=== PATIENT | male | born 2000 | race Caucasian/White ===

== ENCOUNTER 2022-10-29 21:10 | Emergency (ER) | payer OTHER ==
[~2022-10-29] VITALS: Ht 172.7 cm; Wt 76.2 kg
== END 2022-10-29 22:59 | disposition home or self-care (01) ==
LOC: EMR PED 21:10
DX: B34.9 Viral infection, unspecified (principal); Z88.8 Allergy status to other drugs, medicaments and biological substances

== ENCOUNTER 2023-07-22 23:02 | Emergency (ER) | payer OTHER ==
[~2023-07-22] VITALS: Ht 167.6 cm; Wt 81.6 kg
[2023-07-23] MEDS ORDERED: ORASEP SPRAY30 ML MM (03:06)
[2023-07-23] MEDS ORDERED: DOLOGESIC-DF 51 EACH PO (03:06)
== END 2023-07-23 03:11 ==
LOC: EMR PED 23:02
PROVIDERS: General Practice
DX: B34.9 Viral infection, unspecified (principal); Z20.822 Contact with and (suspected) exposure to COVID-19

== ENCOUNTER 2023-08-29 21:12 | Emergency (ER) | payer OTHER ==
[~2023-08-29] VITALS: Ht 167.6 cm; Wt 81.6 kg
[~2023-08-29 21:12] MED LIST: DOLOGESIC-DF 51 EACH PO; ORASEP SPRAY30 ML MM
[2023-08-29 23:16] LABS: HEMATOCRIT 45.6 % (39.0-48.0); HEMOGLOBIN 15.2 g/dL (13-16.00); MEAN CORPUSCULAR HEMOGLOBIN 27.3 pg (27.00-32.0); MEAN CORPUSCULAR HGB CONC 33.3 g/dl (32.0-36.0); PLATELET COUNT 249 K/uL (150-450); RED BLOOD COUNT 5.56 M/uL (4.00-6.00); RED CELL DISTRIBUTION WIDTH 14.1 % (11.5-14.5)
[2023-08-29 23:38] LABS: ALBUMIN 4.4 gm/dL (3.4-5.0); BILIRUBIN TOTAL 0.6 mg/dL (0.3-1.2); CALCIUM 9.3 mg/dL (8.5-10.1); CREATININE SERUM 0.96 mg/dL (0.70-1.30); GFR 99.86; GLOBULINA 4.5 G/DL (2.4-3.5); POTASSIUM 4.06 mEq/L (3.5-5.1); TOTAL PROTEIN 8.9 gm/dL (6.4-8.2)
[2023-08-30 01:45] LABS: PH,URINE 5.5 (5.0-8.0); URINE APPEARANCE Clear; URINE BILIRRUBIN Negative (NEGATIVE); URINE BLOOD Negative; URINE COLOR Yellow; URINE GLUCOSE Negative (NEGATIVE); URINE LEUKOCYTE Negative; URINE NITRATE Negative; URINE PROTEIN Negative (NEGATIVE); URINE UROBILINOGEN 0.2 E.U./dl
[2023-08-30 01:49] LABS: URINE BACTERIA 418.1 uL (0.0-1933); URINE EPITHELIAL CELLS 11.7 uL (0.0-38.8); URINE RBC 6.7 uL (0.0-20.8); URINE WBC 21.9 uL (0.0-23.2)
[2023-08-30] MEDS ORDERED: INTESTINEX680 M2 PO ×2 (03:02→03:03)
[2023-08-30] MEDS ORDERED: PEPCID40 MG PO (03:02)
[2023-08-30] MEDS ORDERED: ONDANSETRON ODT4 MG PO (03:02)
== END 2023-08-30 03:12 ==
LOC: ER 21:12 → EMR PED 21:12
PROVIDERS: Emergency Medicine Pediatric Emergency Medicine
DX: R11.10 Vomiting, unspecified (principal); E86.0 Dehydration; E16.1 Other hypoglycemia; R10.9 Unspecified abdominal pain
CPT/HCPCS: 36415; 96365; 96366; 99284; J2405; J3490; J7030; J7070

== ENCOUNTER 2023-11-01 22:18 | Emergency (ER) | payer OTHER ==
[~2023-11-01] VITALS: Ht 167.6 cm; Wt 79.4 kg
[~2023-11-01 22:18] MED LIST changes: +INTESTINEX680 M2 PO; +ONDANSETRON ODT4 MG PO; +PEPCID40 MG PO
[2023-11-02 00:52] LABS: HEMATOCRIT 42.2 % (39.0-48.0); HEMOGLOBIN 14.5 g/dL (13-16.00); MEAN CELL VOLUME 79.6 fL (80.0-100.00); MEAN CORPUSCULAR HEMOGLOBIN 27.3 pg (27.00-32.0); MEAN CORPUSCULAR HGB CONC 34.3 g/dl (32.0-36.0); PLATELET COUNT 198 K/uL (150-450); RED CELL DISTRIBUTION WIDTH 13.5 % (11.5-14.5)
[2023-11-02] MEDS ORDERED: DOLOGESIC-DF 51 EACH PO (02:12)
== END 2023-11-02 02:16 ==
LOC: EMR PED 22:19 → ER 22:19 → EMR PED 22:42
PROVIDERS: Emergency Medicine Pediatric Emergency Medicine
DX: J10.1 Influenza due to other identified influenza virus with other respiratory manifestations (principal); R53.81 Other malaise; R51.9 Headache, unspecified; Z20.822 Contact with and (suspected) exposure to COVID-19

== ENCOUNTER 2024-02-11 19:20 | Emergency (ER) | payer OTHER ==
[~2024-02-11] VITALS: Ht 152.4 cm; Wt 73.9 kg
[2024-02-11] MEDS ORDERED: METHYLPREDNISOLONE SOD SUCC 125 MG VIAL IM ONE (23:30)
[2024-02-12 00:25] LABS: HEMATOCRIT 37.5 % (39.0-48.0); HEMOGLOBIN 12.5 g/dL (13-16.00); MEAN CELL VOLUME 76.3 fL (80.0-100.00); MEAN CORPUSCULAR HEMOGLOBIN 25.4 pg (27.00-32.0); MEAN CORPUSCULAR HGB CONC 33.3 g/dl (32.0-36.0); PLATELET COUNT 264 K/uL (150-450); RED BLOOD COUNT 4.92 M/uL (4.00-6.00); RED CELL DISTRIBUTION WIDTH 14.2 % (11.5-14.5)
== END 2024-02-12 03:52 | disposition home or self-care (01) ==
LOC: ER 19:20
PROVIDERS: Emergency Medicine
DX: B08.8 Other specified viral infections characterized by skin and mucous membrane lesions (principal); J02.8 Acute pharyngitis due to other specified organisms

== ENCOUNTER 2025-01-29 21:47 | Emergency (ER) | payer OTHER ==
[~2025-01-29] VITALS: Ht 167.6 cm; Wt 72.6 kg
[2025-01-30 00:14] LABS: HEMATOCRIT 40.8 % (39.0-48.0); HEMOGLOBIN 13.5 g/dL (13-16.00); MEAN CELL VOLUME 77.4 fL (80.0-100.00); MEAN CORPUSCULAR HEMOGLOBIN 25.5 pg (27.00-32.0); PLATELET COUNT 213 K/uL (150-450); RED BLOOD COUNT 5.27 M/uL (4.00-6.00); RED CELL DISTRIBUTION WIDTH 14.2 % (11.5-14.5)
== END 2025-01-30 01:56 | disposition home or self-care (01) ==
LOC: ER 21:50
PROVIDERS: Preventive Medicine Public Health & General Preventive Medicine
DX: J10.1 Influenza due to other identified influenza virus with other respiratory manifestations (principal); Z88.8 Allergy status to other drugs, medicaments and biological substances; Z20.822 Contact with and (suspected) exposure to COVID-19

== ENCOUNTER 2025-07-24 21:40 | Emergency (ER) | payer OTHER ==
[~2025-07-24] VITALS: Ht 167.6 cm; Wt 72.6 kg
[2025-07-24] MEDS ORDERED: KETOROLAC TROMETHAMINE 30 MG VIAL IM STA (23:42)
[2025-07-24] MEDS ORDERED: KETOROLAC TROMETHAMINE 30 MG VIAL ONE (23:44)
[2025-07-24 23:58] LABS: BASO % 0.3 % (0.1-1.2); EOS # 0.01 (0.04-0.54); EOS % 0.3 % (0.7-7.0); LYMPH # 1.27 (1.18-3.74); LYMPH % 31.8 % (19.3-53.1); MEAN PLATELET VOLUME 8.90 fl (9.4-12.4); MONO # 0.33 (0.24-0.82); MONO % 8.3 % (4.7-12.5); NEUT # 2.36 (1.56-6.13); NEUT % 58.8 % (34.0-71.1); RED CELL DISTRIBUTION WIDTH 13.2 % (11.6-14.4)
[2025-07-25 00:23] LABS: ALT/SGPT 15.0 U/L (12-78); AST/SGOT 12.0 U/L (15-37); BILIRUBIN TOTAL 0.3 mg/dL (0.3-1.2); BUN CREA RATIO 10.0 (7.0-25.0); CREATININE SERUM 0.89 mg/dL (0.70-1.30); GFR 106.89; GLOBULINA 6.7 G/DL (2.4-3.5); GLUCOSE FASTING 79.0 mg/dL (65-100); OSMOLALITY SERUM 277.0 MOSM/KG (275-295)
== END 2025-07-25 01:47 | disposition home or self-care (01) ==
LOC: ER 21:40
PROVIDERS: General Practice
DX: M94.0 Chondrocostal junction syndrome [Tietze] (principal); R07.9 Chest pain, unspecified; Z88.8 Allergy status to other drugs, medicaments and biological substances